=== PATIENT | female | born 1985 | race Two or more races ===

== ENCOUNTER 2025-02-16 08:16 | Emergency (ER) | payer OTHER ==
[~2025-02-16] VITALS: Ht 165.1 cm; Wt 59.0 kg
[2025-02-16] MEDS ORDERED: CEFTRIAXONE SODIUM 1,000 MG VIAL IM STA (08:57)
[2025-02-16] MEDS ORDERED: KETOROLAC TROMETHAMINE 30 MG VIAL IM STA (08:57)
[2025-02-16] MEDS ORDERED: CEFTRIAXONE SODIUM 1,000 MG VIAL ONE (09:02)
[2025-02-16] MEDS ORDERED: KETOROLAC TROMETHAMINE 30 MG VIAL ONE (09:02)
[2025-02-16] MEDS ORDERED: LIDOCAINE HCL/MPF 1% 5ML VIAL IJ ONE (09:03)
[2025-02-16 10:09] LABS: BASO % 0.6 % (0.1-1.2); EOS # 0.46 (0.04-0.54); EOS % 8.7 % (0.7-7.0); LYMPH # 1.77 (1.18-3.74); LYMPH % 33.6 % (19.3-53.1); MEAN PLATELET VOLUME 10.00 fl (9.4-12.4); MONO # 0.49 (0.24-0.82); MONO % 9.3 % (4.7-12.5); NEUT # 2.51 (1.56-6.13); NEUT % 47.6 % (34.0-71.1); RED CELL DISTRIBUTION WIDTH 13.0 % (11.6-14.4)
[2025-02-16 11:17] LABS: COVID-19 AG NEGATIVE (NEGATIVE)
== END 2025-02-16 12:10 | disposition home or self-care (01) ==
LOC: ER 08:16
PROVIDERS: General Practice
DX: J06.9 Acute upper respiratory infection, unspecified (principal); Z20.822 Contact with and (suspected) exposure to COVID-19; Z88.2 Allergy status to sulfonamides